=== PATIENT | female | born 1990 | race Caucasian/White ===

== ENCOUNTER 2017-04-04 22:51 | Emergency (ER) | payer OTHER ==
[2017-04-05 00:37] LABS: HEMOGLOBIN 14.4 gm/dl (12.3-15.3); RED BLOOD COUNT 4.94 M/UL (4.00-5.10); WHITE BLOOD COUNT 8.1 K/UL (4.5-11.0)
[2017-04-05 00:58] LABS: BUN/CREATININE RATIO 10 (0-10)
== END 2017-04-05 03:06 | disposition home or self-care (01) ==
LOC: ER1 22:51
PROVIDERS: Emergency Medicine
DX: R42 Dizziness and giddiness (principal); G47.419 Narcolepsy without cataplexy; F42.9 Obsessive-compulsive disorder, unspecified
CPT/HCPCS: 36415; 70450; 71010; 80053; 80307; 81001; 82550; 82553; 83874; 84443; 84484; 84703; 85025; 93005; 96374; 99285; J2405